=== PATIENT | male | born 1945 ===

== ENCOUNTER 2017-03-28 09:23 | Day surgery (SDC) | payer MEDICARE, OTHER ==
[2017-03-20 11:36] VITALS: BMI 27.3
[2017-03-28] MEDS ORDERED: Propofol 10 mg/ml Inj (20 ML) ONE (12:04)
[2017-03-28] MEDS ORDERED: Sodium Chloride 0.9% 1,000 ML IV SCH (12:30)
[2017-03-28 13:44] VITALS: BP 130/67; PULSE 53; RESP 18; TEMP 98.7; O2SAT 98
== END 2017-03-28 14:04 | disposition home or self-care (01) ==
LOC: ENDO 09:23
PROVIDERS: ATTEND Internal Medicine
DX: Z12.11 Encounter for screening for malignant neoplasm of colon (principal); D12.3 Benign neoplasm of transverse colon; D17.5 Benign lipomatous neoplasm of intra-abdominal organs; K63.5 Polyp of colon; K57.30 Diverticulosis of large intestine without perforation or abscess without bleeding; K64.8 Other hemorrhoids; I10 Essential (primary) hypertension; I25.10 Atherosclerotic heart disease of native coronary artery without angina pectoris
CPT/HCPCS: 45380; 88305; J2704; J7040 ×2

== ENCOUNTER 2017-06-23 06:15 | Day surgery (SDC) | payer OTHER ==
[2017-03-20 11:36] VITALS: BMI 27.3
[2017-06-23] MEDS ORDERED: Iohexol 240 (50 ml) ONE (07:29)
[2017-06-23] MEDS ORDERED: cefTRIAXone (Rocephin) 1 gm Inj ONE (07:29)
[2017-06-23] MEDS ORDERED: Lidocaine 1% Inj (20ml) ONE (08:28)
[2017-06-23] MEDS ORDERED: Propofol 10 mg/ml Inj (20 ML) ONE (08:28)
[2017-06-23] MEDS ORDERED: HYDROmorphone 0.5 mg/0.5 ml ISec IVP PRN (09:39)
[2017-06-23] MEDS ORDERED: Lactated Ringer's 1,000 ML IV SCH (09:45)
--- NOTE | 2017-06-23 10:03 | RAD ---
PROCEDURE: Fluoroscopy up to 1 hr.. HISTORY: REMOVAL RT STENT COMPARISON: None TECHNIQUE: Standard protocol for this study/examination. FINDINGS: Total fluoroscopic time (continuous mode) utilized during the procedure 7.6 (seconds). Total exam DLP: (mGy) 2.28 Submitted images from the current procedure: 3.0 IMPRESSION: Less than 1 hr fluoroscopic time utilized during performance of the procedure.
[2017-06-23 10:45] VITALS: RESP 18; TEMP 97.4; O2SAT 98
[2017-06-23 11:42] VITALS: BP 160/73; PULSE 62
--- NOTE | 2017-06-30 05:03 | HP ---
DATE OF EXAM: 06/29/2017 (Retain this field only for Dr. Татьяна White, even if not dictated.) UROLOGY ADMISSION HISTORY AND PHYSICAL REASON FOR ADMISSION HISTORY AND PHYSICAL: Elevated PSA. HISTORY OF PRESENT ILLNESS: Mr. Veliz is a very pleasant gentleman. He is here today for prostate ultrasound and prostate ultrasound-guided biopsy. He has voiding dysfunction, irritative and obstructive urinary complaints, decreased flow stream, nocturia and he is here now for prostate ultrasound and biopsy. PAST MEDICAL AND SURGICAL HISTORY: As listed on the chart. No history of an UT or CVA. SOCIAL HISTORY: Unremarkable. MEDICATIONS: See chart. ALLERGIES: NONE. REVIEW OF SYSTEMS: Except for above, noncontributory. PHYSICAL EXAMINATION: GENERAL: Well-nourished male, in no apparent distress. VITAL SIGNS: Within normal limits. LUNGS: Clear. HEART: Normal S1 and S2. ABDOMEN: Overall soft. Nontender. No real flank masses appreciated. GENITOURINARY: Normal phallus without discharge. No testicular masses. RECTAL: A 30 g prostate, soft and smooth. DIAGNOSES: Voiding dysfunction, irritative and obstructive urinary complaints and also elevated PSA. We discussed the options, risks, benefits, and alternatives. After discussing the options, we are going to plan for prostate ultrasound and prostate ultrasound-guided biopsy. PLAN: 1. Antibiotic prophylaxis. 2. Ultrasound of prostate. 3. An ultrasound-guided biopsy. Further plans will follow depending on how the patient does clinically. ADDENDUM: We discussed options with the patient, risks, benefits and alternatives. We will also discuss the importance of coming back in for followup.. Barron Moreira MD
--- NOTE | 2017-06-30 06:21 | OP ---
PROCEDURE DATE: 06/23/2017 UROLOGY OPERATIVE REPORT PREOPERATIVE DIAGNOSES: Elevated prostate specific antigen, voiding dysfunction, nocturia, and irritative and obstructive urinary complaints. POSTOPERATIVE DIAGNOSES: Elevated prostate specific antigen, voiding dysfunction, nocturia, and irritative and obstructive urinary complaints. PROCEDURE: Ultrasound of prostate, ultrasound-guided prostate biopsy. SURGEON: Dr. Barron Moreira BLOOD LOSS: Less than 10 mL. COMPLICATIONS: No complications. INDICATIONS: See history and physical for further details. In brief, a very pleasant gentleman here for the above procedure. DESCRIPTION OF PROCEDURE: After obtaining informed consent, the patient was placed on the table. Routine monitors were placed. Timeout was called to confirm the patient. We discussed risks, benefits, and alternatives. We did picture the transverse and longitudinal views, the prostate volume measured to be about 34 mL. We now began our transrectal ultrasound guided biopsy. We did random quadrants, left base, left mid, left apex, right base, right mid, right apex. We did 2 at each core for a total of 12. Specimen sent down. Post-biopsy rectal exam was within normal limits. The patient tolerated the procedure without complications. I do want to mention 2 extra specimens because if the core does not look strong enough or good enough, we will repeat it. Barron Moreira MD
--- NOTE | 2017-08-03 08:36 | PN ---
DATE: 06/23/2017 UROLOGY IMMEDIATE POSTOPERATIVE NOTE This is a very pleasant gentleman who is now postop, had a stent removal. Vital signs are all within normal limits, included in the chart. The patient is sent to Recovery Room. Status post cystoscopy, ureteroscopy. The findings were no stones. The plan is for routine postop care. Barron Moreira MD
--- NOTE | 2017-08-03 18:22 | OP ---
PROCEDURE DATE: 06/23/2017 PREOPERATIVE DIAGNOSES: Urolithiasis, hematuria. POSTOPERATIVE DIAGNOSES: Urolithiasis, hematuria. PROCEDURES: Cystoscopy, removal of a right double J-stent, right ureteroscopy. BLOOD LOSS: Less than 10 mL. COMPLICATIONS: None. UROLOGY FINDINGS: 1. Normal anterior urethra. 2. No strictures. 3. Verumontanum is within normal limits for age. There were no stones seen within the ureter. The double J-stent removed relatively easily. INDICATIONS: See history and physical for further details. A very pleasant gentleman here for the above-listed procedures. The patient had a stent placed by another urologist. We discussed options with patient. Instead of just removing the stent, we brought the patient here for the above-listed procedures. DESCRIPTION OF PROCEDURE: After obtaining informed consent, the patient was placed on the table. Routine monitor was placed. Time-out was called to confirm the patient's positioning. Antibiotic prophylaxis given. Animal Breeder film was performed. The procedure continued. We identified the stone present. We moved it up to the kidney. We went adjacent to the wire with the ureteroscope. We did not identify any stones within the ureter. We were able to go all the way up to the renal pelvis. No stones were identified. No further treatment. The patient tolerated the procedure without complications. Barron Moreira MD
--- NOTE | 2017-08-03 18:42 | HP ---
REASON FOR ADMISSION: Removal of a double-J stent. ORY OF PRESENT ILLNESS: A very pleasant gentleman who is 72-year-old who is being brought in now for stent removal. A very pleasant gentleman who had a stent placed by another physician. He had the stent placed for stone disease by another physician who is coming in today for a cysto. PAST MEDICAL HISTORY AND PAST SURGICAL HISTORY: As listed on the chart. No history of an PR or CVA. We had discussed options and he is here today for cystoscopy, ureteroscopy with stent removal. REVIEW OF SYSTEMS: Listed above. SOCIAL HISTORY: Essentially unremarkable. PHYSICAL EXAMINATION: GENERAL: In on apparent distress. VITAL SIGNS: Within normal limits. LUNGS: Clear. ABDOMEN: Overall soft, nontender. No flank masses appreciated. GENITOURINARY: Normal phallus without discharge. No testicular masses. RECTAL: . DIAGNOSES: Urolithiasis, hematuria, and stone disease. We have discussed the options with the patient. He is here today for a cystoscopy, stent removal, and ureteroscopy . Risks and benefits were discussed with the patient at length and we will plan to proceed. Barron Moreira MD
== END 2017-06-23 12:05 | disposition home or self-care (01) ==
LOC: SDS 06:15
PROVIDERS: ATTEND Urology
DX: N20.9 Urinary calculus, unspecified (principal); R31.9 Hematuria, unspecified